=== PATIENT | female | born 1950 | race American Indian/Alaskan Native ===

== ENCOUNTER 2020-09-10 15:47 | Emergency (ER) | payer OTHER ==
[~2020-09-10] VITALS: Ht 162.6 cm; Wt 90.7 kg
--- NOTE | 2020-09-10 15:47 | NUR ---
1544--ARRIVAL TO ED WITH CPR AND ACLS PROTOCOL IN PLACE. PLEASE SEE CODE SHEET FOR MEDICATIONS AND INTERVENTIONS DONE DURING RESUSCITATION.
--- NOTE | 2020-09-10 16:00 | NUR ---
69 Y/O FEMALE BIBA FROM [facility] WENT ASYSTOLE DURING TREATMENT. ON ARRIVAL PT ASYSTOLE, CPR. ON ARRIVAL RT, RNS, MD, AND EMT AT BEDSIDE. PMH: EXTENSIVE HX SEE CHART NKA
[2020-09-10] MEDS ORDERED: ATROPINE 0.4 MG/ML VIAL IVP STA (16:27)
[2020-09-10] MEDS ORDERED: NOREPINEPHRINE 4 MG in DEXTROSE 5% 250 ML IV ONE (16:30)
--- NOTE | 2020-09-10 16:33 | NUR ---
Pt coded again, RT, , RN at pt bedside.
--- NOTE | 2020-09-10 16:46 | NUR ---
permit technician at pt bedside.
[2020-09-10 17:03] LABS: BASOPHILS # (AUTO) 0.1 K/uL (0.00-0.22); BASOPHILS % (AUTO) 0.8 % (0.0-2.0); EOSINOPHILS # (AUTO) 0.1 K/uL (0-0.4); EOSINOPHILS % (AUTO) 1.5 % (0.0-4.0); HEMATOCRIT 26.1 % (36-48); HEMOGLOBIN 7.6 g/dL (12.0-16.0); LYMPHOCYTES # (AUTO) 1.6 K/uL (2.5-16.5); LYMPHOCYTES % (AUTO) 23.6 % (20.5-51.1); MEAN CORPUSCULAR HEMOGLOBIN 26 pg (27-31); MEAN CORPUSCULAR HGB CONC 29 g/dL (33-37); MEAN CORPUSCULAR VOLUME 90.1 fL (80-94); MONOCYTES # (AUTO) 0.1 K/uL (0.8-1.0); MONOCYTES % (AUTO) 1.3 % (1.7-9.3); NEUTROPHILS # (AUTO) 4.8 K/uL (1.8-7.7); NEUTROPHILS % (AUTO) 72.8 % (42.2-75.2); PLATELET COUNT (AUTO) 79 K/uL (140-450); RED CELL DISTRIBUTION WIDTH 20.3 % (11.6-13.7); WHITE BLOOD COUNT (AUTO) 6.6 K/uL (4.8-10.8)
--- NOTE | 2020-09-10 17:08 | NUR ---
Pt coded, RT, MD, EMT, and RN at pt bedside.
[2020-09-10] MEDS ORDERED: AZITHROMYCIN 500 MG in DEXTROSE 5% 250 ML IV ONE (17:10)
--- NOTE | 2020-09-10 17:12 | NUR ---
TIME OF CALLED AT 171 BY MD MORELAND.
[2020-09-10 17:20] LABS: PROTHROMBIN TIME 15.8 secs (10.8-13.4)
--- NOTE | 2020-09-10 17:27 | NUR ---
[facility] BRINELL TESTER TO CALL BACK.
--- NOTE | 2020-09-10 17:29 | NUR ---
CALL MADE TO [facility]. CASE NUMBER PROVIDED: [id number]
[2020-09-10 17:31] LABS: ALBUMIN 1.7 g/dL (3.4-5.0); ANION GAP 15.1 (8-16); CREATININE 2.9 mg/dL (0.6-1.3); POTASSIUM 4.1 mmol/L (3.5-5.1); TOTAL BILIRUBIN 0.6 mg/dL (0.0-1.0)
--- NOTE | 2020-09-10 19:33 | NUR ---
Gave report to Mindy BECERRA and Aprli BECERRA, transfer of care at this time.
--- NOTE | 2020-09-10 20:30 | NUR ---
SPOKE WITH LENORE FROM [facility] AND ANSWERED QUESTIONS REGARDING PATIENT. NOTIFIED LAST PEA WAS @ 1700.
--- NOTE | 2020-09-10 20:50 | NUR ---
SPOKE WITH DAYANA FROM [facility] AND GAVE CLINICAL INFORMATION ON PATIENT.
--- NOTE | 2020-09-10 21:09 | NUR ---
Spoke w/ Ly from [facility] , the pt's son Venkata Montero has been notified of and will be calling the hospital for more information. Per Ly , pt has been released , case # [id number].
--- NOTE | 2020-09-10 21:14 | NUR ---
SPOKE WITH RICK MARTINEZ (SON) [phone] AND RECIVED VERBAL CONSENT TO RESLEASE BODY TO CHOSEN MORTUARY. PER RICK UNCLE AND BROTHER OF PATIENT - JOE CENTENO HAS INFORMATION IN REGARDS TO PREFERED MORTUARY.
--- NOTE | 2020-09-10 21:32 | NUR ---
RECIVED CALL FROM JOE TIRADO AND GAVE INFORMATION ON POTENTIAL MORTUARIES. PER JOE WILL CALL BACK WITH MORE INFORMATION FOR PREFERED MORTUARY.
--- NOTE | 2020-09-10 21:38 | NUR ---
CONTACT INFORMATION: JOE TIRADO [phone].
--- NOTE | 2020-09-10 22:00 | NUR ---
Post mortem care provided with assistance from EMT.
[2020-09-10 22:18] LABS: CREATINE KINASE MB 418.9 ng/mL (0-3.6)
--- NOTE | 2020-09-11 01:10 | NUR ---
Patient taken to [facility] with assistance from security. 2 RN verfifed patient ID.
--- NOTE | 2020-09-11 03:26 | NUR ---
Informed Denixa from [facility] that patient has been [place] [facility] [place] at 0110 and no morturary has been selected by family at this time.
--- NOTE | 2020-09-11 04:30 | NUR ---
[facility] Leon[facility] called regarding asking for the fax number to fax the consent that the family agrees to release the body to [facility]; and Leonardo stated that she will fax the consent, then she will send someone to [facility] the body Addendum: 09/11/20 at 0437 by [email or web address] [facility] Phone # [phone]
== END 2020-09-10 17:12 ==
LOC: MED 15:47
DX: I46.9 Cardiac arrest, cause unspecified (principal); E11.9 Type 2 diabetes mellitus without complications; I10 Essential (primary) hypertension
CPT/HCPCS: 36415; 36556; 71045; 74018; 80053; 82550; 82553; 83605; 83690; 84484; 85025; 85384; 85610; 85730; 86886; 86900; 86901; 87040; 92950; 93005; 94002; 99291; 99292; J0461; 36568